=== PATIENT | male | born 1960 | race Caucasian/White ===

== ENCOUNTER → 2022-12-26 | Outpatient (CLI) | payer MEDICAID, OTHER | LOC: M PLAIMG 10:08 | PROVIDERS: ATTEND Physician Assistant | DX: M25.512 Pain in left shoulder (principal) ==

== ENCOUNTER 2024-12-07 11:01 | Emergency (ER) | payer BC, MEDICARE, OTHER ==
[~2024-12-07] VITALS: Ht 167.6 cm; Wt 122.1 kg
[2024-12-07] MEDS ORDERED: ACYC1TAB (11:10)
[2024-12-07] MEDS ORDERED: MELO15TA28 (11:10)
[2024-12-07] MEDS ORDERED: POTA1TAB23 (11:10)
[2024-12-07] MEDS ORDERED: AMLO1TAB25 (11:10)
[2024-12-07] MEDS ORDERED: RAMI10CA64 (11:10)
[2024-12-07] MEDS ORDERED: OMEP-173 (11:10)
[2024-12-07] MEDS ORDERED: HYDR-3490 (11:10)
[2024-12-07] MEDS ORDERED: ATOR1TAB21 (11:10)
[2024-12-07 11:43] LABS: VENOUS BASE EXCESS 0.8 (-2.0-2.0); VENOUS HCO3 23.9 MMOL/L (23.0-27.0); VENOUS O2 SATURATION 90.8 % (60.0-80.0); VENOUS PARTIAL PRESSURE CO2 34.7 mmHg (38.0-50.0); VENOUS PARTIAL PRESSURE O2 57.6 mmHg (30.0-50.0); VENOUS PH 7.456 UNITS (7.330-7.430); VENOUS STANDARD HCO3 24.9 MMOL/L
[2024-12-07 11:50] LABS: BASO % 0.4 % (0.0-1.0); EOS # 0.1 10^3/uL (0.0-0.5); EOS % 2.1 % (0.0-3.0); LYMPH % 21.2 % (24.0-44.0); MEAN CORPUSCULAR HEMOGLOBIN 29.5 pg (27.0-33.0); MEAN CORPUSCULAR VOLUME 84.3 fl (80.0-96.0); MONO # 0.4 10^3/uL (0.0-0.8); MONO % 7.4 % (2.0-8.0); NEUTROPHILS # 3.3 10^3/uL (1.5-8.5); NEUTROPHILS % 68.3 % (36.0-66.0); PLATELET COUNT, AUTOMATED 246 10^3/uL (150-450); WHITE BLOOD COUNT 4.9 10^3/uL (4.0-10.0)
[2024-12-07 11:51] LABS: HEMOGLOBIN 18.2 g/dl (13.5-17.5); RED BLOOD COUNT 6.17 10^6/uL (4.30-6.10)
[2024-12-07 12:02] LABS: LIPASE 63 U/L (12-53)
[2024-12-07 12:20] LABS: KETONE, URINE AUTO RFX 1+ mg/dL (NEGATIVE); LEUKOCYTE ESTERASE UR AUTO RFX NEGATIVE (NEGATIVE); MUCUS, URINE RFX SMALL (NEGATIVE); NITRITE, URINE AUTO RFX NEGATIVE (NEGATIVE); RBC, URINE AUTO RFX 0 /HPF (0-3); SQUAM EPITHELIAL CELL UR AURFX 0 /HPF (0-6); WBC, URINE AUTO RFX 0 /HPF (0-3)
[2024-12-07 12:33] LABS: HEMOGLOBIN A1c 12.1 % (4.0-6.0)
[2024-12-07 12:44] LABS: OSMOLALITY SERUM 311 MOSM/KG (280-301)
[2024-12-07 12:47] LABS: ALKALINE PHOSPHATASE 87 U/L (40-129); ALT/SGPT 40 U/L (7.0-40); AST/SGOT 25 U/L (<34); BILIRUBIN,DIRECT 0.2 MG/DL (<0.4); BLOOD UREA NITROGEN 22 MG/DL (9-23); CALCIUM LEVEL 9.5 MG/DL (8.3-10.6); CARBON DIOXIDE LEVEL 22 MMOL/L (20-31); CHLORIDE LEVEL 101 MMOL/L (98-107); CREATININE FOR GFR 0.83 MG/DL (0.70-1.30); GLOMERULAR FILTRATION RATE > 60.0 (>49); GLUCOSE, FASTING 439 MG/DL (74-106); MAGNESIUM LEVEL 1.9 MG/DL (1.8-2.4); POTASSIUM SERUM 3.9 MMOL/L (3.5-5.1); SODIUM LEVEL 136 MMOL/L (136-145); TOTAL PROTEIN 7.5 G/DL (5.7-8.2)
[2024-12-07] MEDS: NS (Normal Saline) 0.9% 1,000 ML IV ONE (13:05)
[2024-12-07] MEDS: HumuLIN R (REGULAR) INSULIN (NovoLIN R) **100U/ML** PER UNIT IV ONE (13:05)
[2024-12-07] MEDS ORDERED: METF500T13 PO (14:43)
[2024-12-07] MEDS ORDERED: FLAS1KIT2 MC (14:43)
[2024-12-07] MEDS ORDERED: BLOO-259 MC (14:43)
[2024-12-07] MEDS ORDERED: LANTINJ4 SC (14:43)
[2024-12-07 15:23] VITALS: BP 134/86; TEMP 97.5; O2SAT 95
== END 2024-12-07 15:25 | disposition home or self-care (01) ==
LOC: M ED 11:01
DX: E11.65 Type 2 diabetes mellitus with hyperglycemia (principal); I45.81 Long QT syndrome; I10 Essential (primary) hypertension; E78.5 Hyperlipidemia, unspecified; K21.9 Gastro-esophageal reflux disease without esophagitis; F10.10 Alcohol abuse, uncomplicated; Z79.4 Long term (current) use of insulin; Z79.84 Long term (current) use of oral hypoglycemic drugs; Z79.899 Other long term (current) drug therapy
CPT/HCPCS: 80048; 80076; 81001; 82010; 82803; 83036; 83690; 83735; 83930; 85025; 93005; 96361; 96374; 99284; J1815

== ENCOUNTER → 2025-06-16 | Outpatient (CLI) | payer MEDICARE ==
[~2025-06-16] MED LIST: ACYC-438; AMLO1TAB25; ATOR1TAB21; BLOO-259 MC; FLAS1KIT2 MC; HYDR-3490; LANTINJ4 SC; MELO15TA28; METF500T13 PO; OMEP-173; POTA1TAB23; RAMI10CA64
[2025-06-16 12:45] LABS: ESTIMATED AVERAGE GLUCOSE 105.0 MG/DL (60-110)
== END ==
LOC: M WUC 10:52
PROVIDERS: ATTEND Physician Assistant
DX: E11.9 Type 2 diabetes mellitus without complications (principal)